=== PATIENT | male | born 1980 | race Caucasian/White ===

== ENCOUNTER 2023-05-07 14:23 | Emergency (ER) | payer OTHER ==
[2023-05-07 14:56] VITALS: BP 161/102; RESP 18; TEMP 97.2; O2SAT 97
--- NOTE | 2023-05-07 15:34 | ERPHSYRPT ---
- History of Present Illness Time Seen by Provider: 05/07/23 14:29 Source: patient, EMS Exam Limitations: no limitations Patient Subjective Stated Complaint: PT HERE FOR POSSIBLE INFECTION TO DIALYSIS CATH. TO RIGHT SIDE OF CHEST, HE STATES HE WENT INTO RENAL FAILURE 2 MONTHS AGO. HE IS SCEDULED TO HAVE OUT OF MAY 10. Triage Nursing Assessment: PT ARRIVED PER AMBULANCE ALERT, ANXIOUS, ALERT, RESP EASY, SKIN W/D/P. HAS DIALYSIS CATH TO RIGHT CHEST NO DRESSING IN PLACE, NO DRAINAGE NOTED, HE CO PAIN TO AREA Physician History: 43 years old male with a history of recent rhabdomyolysis with renal failure needing dialysis for almost 3 weeks presented in the ER for evaluation of dialysis tunnel catheter insertion site checked for possible infection. Patient has no fever or chills. Complain of minimal pain with movements of catheter. No swelling redness around the area of insertion. No discharge. No difficulty breathing. No chest pain. Tunnel catheter was placed 3 months ago and is scheduled to be taken out on the . 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 - Review of Systems Constitutional: No Symptoms Eyes: No Symptoms Ears, Nose, & Throat: No Symptoms Respiratory: No Symptoms Cardiac: No Symptoms Musculoskeletal: No Symptoms Skin: No Symptoms Neurological: No Symptoms Hematologic/Lymphatic: No Symptoms Immunological/Allergic: No Symptoms - Past Medical History Pertinent Past Medical History: Yes History: Dialysis, Renal Disease - Past Surgical History Past Surgical History: Yes Gastrointestinal: Hernia Repair Other Surgical History: DIALYSIS PORT PLACED - Social History Smoking Status: Current every day smoker Exposure to second hand smoke: Yes Drug Use: methamphetamines Patient Lives Alone: No - Nursing Vital Signs Nursing Vital Signs: Initial Vital Signs Temperature 97.2 F 05/07/23 14:55 Pulse Rate 89 05/07/23 14:55 Respiratory Rate 18 05/07/23 14:55 Blood Pressure 161/102 05/07/23 14:55 O2 Sat by Pulse Oximetry 97 05/07/23 14:55 Pain Scale Pain Intensity 7 - Physical Exam General Appearance: no apparent distress, alert Eye Exam: PERRL/EOMI Ears, Nose, Throat Exam: normal ENT inspection Neck Exam: normal inspection, non-tender, supple, full range of motion Respiratory Exam: normal breath sounds, lungs clear, other (Right upper anterior chest tunneled catheter insertion with no erythema redness discharge, no tenderness.) Cardiovascular Exam: regular rate/rhythm, normal heart sounds Extremity Exam: normal inspection Neurologic Exam: alert, oriented x 3, cooperative Skin Exam: normal color SpO2 Interpretation: normal SpO2: 97 O2 Delivery: Room Air - Progress Progress Note: 05/07/23 15:31 43 years old with tunnel catheter is evaluated in the ER for possible infection at the insertion site. Patient has no discharge from the insertion site, nontoxic appearance, lungs bilateral clear to auscultation. I do not see any signs of infection currently. I have offered him chest x-ray and blood work but patient declined. Recommended keeping appointment for removal of the cornea. Discussed signs symptoms of worsening needing return to ER which she seems understanding. Counseled pt/family regarding: diagnosis, need for follow-up Medical Desision Making - Diagnostic Testing Diagnostic test were ordered, analyzed, and reviewed by me: No - Departure Departure Disposition: Home Clinical Impression: Visit for wound check, History of insertion of tunneled central venous catheter (CVC) with port Condition: Stable Critical Care Time: No Referrals: CHEO GRIGSBY DO [ACTIVE STAFF] - Follow up with PCP 2 days Instructions: How to Care for a Central Line Catheter, Wound Care (DC) Additional Instructions: Take Tylenol as needed. Keep it clean and dry. Follow-up with primary care. Keep appointment for tunnel catheter removal as scheduled. Return to ER for any worsening like redness around the area of insertion, fever chills, difficulty breathing or chest pain etc.
[2023-05-07 16:05] VITALS: PULSE 78
== END 2023-05-07 16:11 | disposition home or self-care (01) ==
LOC: ED 14:23
DX: Z48.00 Encounter for change or removal of nonsurgical wound dressing (principal); Z49.01 Encounter for fitting and adjustment of extracorporeal dialysis catheter
CPT/HCPCS: 99281